=== PATIENT | male | born 1940 | race Caucasian/White ===

== ENCOUNTER → 2016-11-23 | Outpatient (CLI) | payer MEDICARE | LOC: RAD 08:49 | PROVIDERS: ATTEND Physician Assistant | DX: C61 Malignant neoplasm of prostate (principal); C79.51 Secondary malignant neoplasm of bone; M54.5 Low back pain | CPT/HCPCS: 78306; A9503; Q9969 ==

== ENCOUNTER → 2016-12-31 | Outpatient (CLI) | payer MEDICARE | LOC: RAD 08:00 | PROVIDERS: ATTEND Physician Assistant | DX: G54.9 Nerve root and plexus disorder, unspecified (principal); M54.5 Low back pain | CPT/HCPCS: 72148 ==

== ENCOUNTER → 2017-04-25 | Outpatient (CLI) | payer MEDICARE ==
[2017-04-25 11:48] LABS: ALANINE AMINOTRANSFERASE 30 U/L (21-72); ALBUMIN 4.1 g/dL (3.5-5.0); ALKALINE PHOSPHATASE 51 U/L (38-126); ASPARTATE AMINO TRANSFERASE 19 U/L (17-59); BILIRUBIN,DIRECT 0.3 mg/dL (0.0-0.4); BILIRUBIN,TOTAL 0.7 mg/dL (0.2-1.3); TOTAL PROTEIN 6.8 g/dL (6.3-8.2)
[2017-04-25 12:15] LABS: PROSTATE SPECIFIC ANTIGEN < 0.064 ng/mL (<4.00)
== END ==
LOC: OD 10:38
PROVIDERS: ATTEND Radiology Radiation Oncology
DX: C61 Malignant neoplasm of prostate (principal); Z79.899 Other long term (current) drug therapy
CPT/HCPCS: 36415; 80076; 84153

== ENCOUNTER 2018-07-20 13:52 | Emergency (ER) | payer MEDICARE ==
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
[2018-07-20 15:21] LABS: ABSOLUTE EOSINOPHILS # (AUTO) 0.2 10^3/uL (0.0-0.6); ABSOLUTE LYMPHOCYTES (AUTO) 1.2 10^3/uL (0.5-4.7); ABSOLUTE MONOCYTES (AUTO) 0.5 10^3/uL (0.1-1.4); ABSOLUTE NEUT (AUTO) 5.7 10^3/uL (1.7-8.2); BASOPHILS % (AUTO) 0.7 % (0-2); EOSINOPHILS % (AUTO) 2.8 % (0-6); HEMOGLOBIN 14.1 g/dL (13.5-17.0); LYMPHOCYTES % (AUTO) 15.5 % (13-45); MEAN CORPUSCULAR HEMOGLOBIN 29.1 pg (27.0-33.4); MEAN CORPUSCULAR HGB CONC 35.3 g/dL (32.0-36.0); MEAN CORPUSCULAR VOLUME 83 fl (80-97); MONOCYTES % (AUTO) 6.5 % (3-13); PLATELET COUNT 213 10^3/uL (150-450); RED BLOOD COUNT 4.85 10^6/uL (4.35-5.55); RED CELL DISTRIBUTION WIDTH 13.8 % (11.5-14.0); SEGMENTED NEUTROPHILS % (AUTO) 74.5 % (42-78); TOTAL CELLS COUNTED % (AUTO) 100 %; WHITE BLOOD COUNT 7.6 10^3/uL (4.0-10.5)
[2018-07-20 15:26] LABS: APPEARANCE,URINE CLEAR; BILIRUBIN,URINE NEGATIVE (NEGATIVE); COLOR,URINE YELLOW; GLUCOSE, URINE NEGATIVE (NEGATIVE); KETONES,URINE NEGATIVE (NEGATIVE); LEUKOCYTE ESTERASE,URINE NEGATIVE (NEGATIVE); NITRITE,URINE NEGATIVE (NEGATIVE); PROTEIN,URINE NEGATIVE (NEGATIVE); URINE SPECIFIC GRAVITY 1.025; UROBILINOGEN,URINE NEGATIVE mg/dL (<2.0)
[2018-07-20 15:41] LABS: ALANINE AMINOTRANSFERASE 39 U/L (21-72); ALBUMIN 4.1 g/dL (3.5-5.0); ALKALINE PHOSPHATASE 47 U/L (38-126); ANION GAP 8 (5-19); ASPARTATE AMINO TRANSFERASE 31 U/L (17-59); BILIRUBIN,DIRECT 0.4 mg/dL (0.0-0.4); BILIRUBIN,TOTAL 0.9 mg/dL (0.2-1.3); BLOOD UREA NITROGEN 25 mg/dL (7-20); CALCIUM 9.6 mg/dL (8.4-10.2); CARBON DIOXIDE 28 mmol/L (22-30); CHLORIDE 104 mmol/L (98-107); CREATINE KINASE 44 U/L (55-170); GLUCOSE 93 mg/dL (75-110); POTASSIUM 4.5 mmol/L (3.6-5.0); SODIUM 139.9 mmol/L (137-145); TOTAL PROTEIN 6.9 g/dL (6.3-8.2)
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
[2018-07-20 17:13] VITALS: BP 148/74
== END 2018-07-20 17:12 | disposition home or self-care (01) ==
LOC: ER 13:52
DX: S30.0XXA Contusion of lower back and pelvis, initial encounter (principal); S32.020A Wedge compression fracture of second lumbar vertebra, initial encounter for closed fracture; W26.0XXA Contact with knife, initial encounter
CPT/HCPCS: 36415; 72110; 72220; 80053; 81001; 82550; 85025; 99283